=== PATIENT | female | born 2000 | race Caucasian/White ===

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

== ENCOUNTER 2022-12-05 18:31 | Emergency (ER) | payer OTHER, SELFPAY ==
[2022-12-05 18:31] VITALS: BP 145/90; PULSE 110; RESP 16; TEMP 36.4; O2SAT 99; BMI 27.1
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
--- NOTE | 2022-12-05 19:13 | ED.RN ---
PT MOM CALLS IN TO ED TO CHECK ON PT. PT GIVES THIS RN PERMISSION TO SPEAK TO MOM ABOUT CARE. DR. CHILD AT BEDSIDE ASSESSING PT. PT A+OX4.
[2022-12-05] MEDS: Ondansetron ODT 4 MG Tablet PO (19:19)
[2022-12-05 19:21] VITALS: BP 120/74; PULSE 77; RESP 15; O2SAT 100
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
[2022-12-05 20:50] VITALS: BP 110/62; PULSE 70; RESP 15; O2SAT 97
== END 2022-12-05 20:51 | disposition home or self-care (01) ==
PROVIDERS: Emergency Provider Emergency Medicine; Visit Provider Emergency Medicine
DX: S06.0XAA Concussion with loss of consciousness status unknown, initial encounter (principal); Y92.410 Unspecified street and highway as the place of occurrence of the external cause; S00.03XA Contusion of scalp, initial encounter; S00.01XA Abrasion of scalp, initial encounter; F17.200 Nicotine dependence, unspecified, uncomplicated; S80.212A Abrasion, left knee, initial encounter; V40.2XXA Person on outside of car injured in collision with pedestrian or animal in nontraffic accident, initial encounter
CPT/HCPCS: 70450; 71046; 72125; 72170; 73564; 99282